=== PATIENT | female | born 1960 | race African-American/Black ===

== ENCOUNTER 2017-07-23 11:17 | Emergency (ER) | payer BC ==
[~2017-07-23 11:17] MED LIST: ASPI325T8 PO; ATOR10TA60 PO; HYDR12.58 PO; HYDR25TA9 PO; INSU100V SQ; INSU100V8 SQ; METO50TA2 PO
[2017-07-23] MEDS ORDERED: DEXTROSE 50% 25 GM / 50ML DISP.SYRIN. IV ONE (11:45)
[2017-07-23 12:01] LABS: BASO # 0.1 x10^3/uL (0.0-0.2); BASO % 1 % (0-3); EOS # 0.1 x10^3/uL (0.0-0.7); EOS % 1 % (0-3); HEMATOCRIT 32.7 % (36.0-47.0); HEMOGLOBIN 10.3 g/dL (12.0-15.5); LYMPH # 3.4 x10^3/uL (1.0-4.8); LYMPH % 18 % (24-48); MEAN CORPUSCULAR HEMOGLOBIN 25 pg (25-35); MEAN CORPUSCULAR HGB CONC 31 g/dL (31-37); MEAN CORPUSCULAR VOLUME 80 fL (79-100); MONO # 1.4 x10^3/uL (0.0-1.1); MONO % 7 % (0-9); NEUT # 14.2 x10^3uL (1.8-7.7); NEUT % 74 % (31-73); PLATELET COUNT 270 x10^3/uL (140-400); RED BLOOD COUNT 4.07 x10^6/uL (3.50-5.40); RED CELL DISTRIBUTION WIDTH 13.5 % (11.5-14.5); WHITE BLOOD COUNT 19.2 x10^3/uL (4.0-11.0)
[2017-07-23 12:17] LABS: ALBUMIN 3.4 g/dL (3.4-5.0); ALBUMIN/GLOBULIN RATIO 0.7 (1.0-1.7); CALCIUM 9.2 mg/dL (8.5-10.1); CREATININE 1.9 mg/dL (0.6-1.0); GFR 33.2; POTASSIUM 3.9 mmol/L (3.5-5.1); TOTAL BILIRUBIN 0.2 mg/dL (0.2-1.0)
--- NOTE | 2017-07-23 12:30 | PHYS DOC ---
Past History Past Medical History: Diabetes, Hypotension Past Surgical History: Hysterectomy Alcohol Use: None Drug Use: None Adult General Chief Complaint Chief Complaint: HYPOGLYCEMIA HPI HPI Patient is a 57-year-old female, diabetic, who presents by EMS from home after an episode of altered level of consciousness and hypoglycemia. History is from primarily EMS and the patient's daughter initially. Patient's daughter states that the patient worked last night, she came home and the daughter believes she probably took her insulin shot but then did not eat and fell asleep. Daughter found her asleep in her chair slumped over and was not able to wake her. EMS reports that her blood sugar was in the 50 range. She was lethargic on their arrival. They were able to give her some oral glucose but not able to get an IV started. They got her to eat some peanut butter and jelly sandwich on the way in. Daughter states this has happened before. The last time was probably a couple months ago she thinks. Patient gets her primary care at the [facility]. Review of Systems Review of Systems Constitutional: Denies fever or chills , she does feel cold at this time HENT: Denies nasal congestion or sore throat [] Respiratory: Denies cough or shortness of breath [] Cardiovascular: Denies chest pain GI: Denies abdominal pain, nausea, vomiting, bloody stools or diarrhea [] : Denies dysuria or hematuria [] Musculoskeletal: Denies back pain or joint pain [] Integument: Denies rash or skin lesions [] Neurologic: Denies headache, focal weakness or sensory changes [] Current Medications Current Medications Current Medications Medications (Trade) Dose Ordered Sig/Magdaleno Start Time Stop Time Status Last Admin Dose Admin Dextrose 25 gm 1X ONCE 07/23/17 11:45 07/23/17 11:46 DC 07/23/17 11:35 25 GM Allergies Allergies Allergies Coded Allergies Type Severity Reaction Last Updated Verified No Known Drug Allergies 11/14/16 No Physical Exam Physical Exam Constitutional: Well developed, well nourished, no acute distress, non-toxic appearance. Slightly lethargic and confused on presentation, however, able to answer questions. Vital signs stable. HENT: Normocephalic, atraumatic, bilateral external ears normal, nose normal. [] Eyes: conjunctiva normal, no discharge. [] Neck: Normal range of motion, no stridor. [] Cardiovascular:Heart rate regular rhythm, no murmur [] Lungs & Thorax: Bilateral breath sounds clear to auscultation [] Abdomen: Bowel sounds normal, soft, no tenderness, no masses, no pulsatile masses. [] Skin: Warm, dry, no erythema, no rash. [] Extremities: No tenderness, no cyanosis, no clubbing, ROM intact, no edema. [] Neurologic: Alert and oriented X 3, normal motor function, no focal deficits noted. No facial asymmetry, speech normal after the patient cleared up, hospitalist nocturnist physician 5 over 5 and equal bilaterally, no pronator drift. Able to elevate each leg independently off the bed. Finger to nose and heel to rehman normal. Current Patient Data Lab Results Laboratory Tests Test 07/23/17 11:42 White Blood Count 19.2 x10^3/uL (4.0-11.0) H Red Blood Count 4.07 x10^6/uL (3.50-5.40) Hemoglobin 10.3 g/dL (12.0-15.5) L Hematocrit 32.7 % (36.0-47.0) L Mean Corpuscular Volume 80 fL (79-100) Mean Corpuscular Hemoglobin 25 pg (25-35) Mean Corpuscular Hemoglobin Concent 31 g/dL (31-37) Red Cell Distribution Width 13.5 % (11.5-14.5) Platelet Count 270 x10^3/uL (140-400) Neutrophils (%) (Auto) 74 % (31-73) H Lymphocytes (%) (Auto) 18 % (24-48) L Monocytes (%) (Auto) 7 % (0-9) Eosinophils (%) (Auto) 1 % (0-3) Basophils (%) (Auto) 1 % (0-3) Neutrophils # (Auto) 14.2 x10^3uL (1.8-7.7) H Lymphocytes # (Auto) 3.4 x10^3/uL (1.0-4.8) Monocytes # (Auto) 1.4 x10^3/uL (0.0-1.1) H Eosinophils # (Auto) 0.1 x10^3/uL (0.0-0.7) Basophils # (Auto) 0.1 x10^3/uL (0.0-0.2) Platelet Estimate Pending Sodium Level 142 mmol/L (136-145) Potassium Level 3.9 mmol/L (3.5-5.1) Chloride Level 107 mmol/L (98-107) Carbon Dioxide Level 26 mmol/L (21-32) Anion Gap 9 (6-14) Blood Urea Nitrogen 44 mg/dL (7-20) H Creatinine 1.9 mg/dL (0.6-1.0) H Estimated GFR (Cockcroft-Gault) 33.2 BUN/Creatinine Ratio 23 (6-20) H Glucose Level 185 mg/dL (70-99) H Calcium Level 9.2 mg/dL (8.5-10.1) Total Bilirubin 0.2 mg/dL (0.2-1.0) Aspartate Amino Transferase (AST) 18 U/L (15-37) Alanine Aminotransferase (ALT) 24 U/L (14-59) Alkaline Phosphatase 130 U/L (46-116) H Total Protein 8.0 g/dL (6.4-8.2) Albumin 3.4 g/dL (3.4-5.0) Albumin/Globulin Ratio 0.7 (1.0-1.7) L EKG EKG [] Radiology/Procedures Radiology/Procedures [] Course & Med Decision Making Course & Med Decision Making Pertinent Labs and Imaging studies reviewed. (See chart for details) 57-year-old female presents by EMS after an episode of hypoglycemia. EMS was not able to get IV access but they gave her oral glucose and a peanut butter and jelly sandwich. Patient is alert, seems hypoglycemic but is certainly awake and cooperative on arrival. The patient worked nights last night. The patient has no specific complaints. It appears that she administered her insulin and did not eat. She has done this before. The patient was given IV dextrose in the ED. She continued to improve. She ate some food off of a meal tray. She drank some juice. We observed her for quite a while. Labs remarkable only for leukocytosis which I attribute to stress, since her review of systems is negative and also urinalysis is negative. Patient's daughter is going to take her home. The patient is alert and appropriate and aware of what happened and we discussed prevention by ensuring that she eats possibly before taking her insulin in the future. See instructions for plan. [] Dragon Disclaimer Dragon Disclaimer This chart was dictated in whole or in part using Voice Recognition software in a busy, high-work load, and often noisy Emergency Department environment. It may contain unintended and wholly unrecognized errors or omissions. Departure Departure: Impression: Primary Impression: Hypoglycemia associated with type 2 diabetes mellitus Disposition: HOME, SELF-CARE Condition: IMPROVED Referrals: PCP,ROCCO (PCP) Patient Instructions: Hypoglycemia, [id number] Additional Instructions: Be sure to eat regular meals today. Have someone stay with you and check on you to make sure that you are remembering to eat. For today, decrease your insulin dose by about one half. In the future, make sure that you eat when you take insulin. It might be best to eat first and then take your insulin immediately after eating. BHARGAV MCRAE MD Jul 23, 2017 12:30
[2017-07-23 13:31] LABS: % BANDS 2 % (0-9); % BASOS 0 % (0-3); % EOS 4 % (0-5); % LYMPHS 21 % (24-48); % MONOS 5 % (0-10); % SEGS 68 % (35-66); PLT ESTIMATE ADEQUATE (ADEQUATE)
[2017-07-23 13:34] LABS: BACTERIA,URINE 0 /HPF (0-FEW); BILIRUBIN,URINE NEG (NEG); CLARITY,URINE CLEAR; COLOR,URINE YELLOW; GLUCOSE,URINE 100 mg/dL (NEG); NITRITE,URINE NEG (NEG); RBC,URINE 0 /HPF (0-2); SQUAMOUS EPITHELIAL CELL,UR OCC /LPF; UROBILINOGEN,URINE 0.2 mg/dL (0.2 mg/dL); WBC,URINE 0 /HPF (0-4)
[2017-07-23 13:50] VITALS: BP 154/93
== END 2017-07-23 14:00 | disposition home or self-care (01) ==
LOC: ER 11:17
DX: E11.649 Type 2 diabetes mellitus with hypoglycemia without coma (principal); I10 Essential (primary) hypertension
CPT/HCPCS: 36415; 80053; 81001; 82947; 85007; 85025; 96374; 99284-25

== ENCOUNTER → 2018-04-13 | Outpatient (CLI) | payer OTHER ==
[~2018-04-13] MED LIST changes: -METO50TA2 PO; +METO50TA6 PO
[2018-04-13 13:57] LABS: BASO # 0.1 x10^3/uL (0.0-0.2); BASO % 1 % (0-3); EOS # 0.1 x10^3/uL (0.0-0.7); EOS % 1 % (0-3); HEMATOCRIT 35.1 % (36.0-47.0); HEMOGLOBIN 11.2 g/dL (12.0-15.5); LYMPH # 3.1 x10^3/uL (1.0-4.8); LYMPH % 29 % (24-48); MEAN CORPUSCULAR HEMOGLOBIN 26 pg (25-35); MEAN CORPUSCULAR HGB CONC 32 g/dL (31-37); MEAN CORPUSCULAR VOLUME 81 fL (79-100); MONO # 0.9 x10^3/uL (0.0-1.1); MONO % 9 % (0-9); NEUT # 6.4 x10^3uL (1.8-7.7); NEUT % 61 % (31-73); PLATELET COUNT 296 x10^3/uL (140-400); RED BLOOD COUNT 4.36 x10^6/uL (3.50-5.40); RED CELL DISTRIBUTION WIDTH 14.1 % (11.5-14.5); WHITE BLOOD COUNT 10.6 x10^3/uL (4.0-11.0)
[2018-04-13 14:11] LABS: ALBUMIN 3.7 g/dL (3.4-5.0); ALBUMIN/GLOBULIN RATIO 0.7 (1.0-1.7); CALCIUM 9.7 mg/dL (8.5-10.1); CREATININE 2.2 mg/dL (0.6-1.0); GFR 27.9; POTASSIUM 4.4 mmol/L (3.5-5.1); TOTAL BILIRUBIN 0.3 mg/dL (0.2-1.0); TOTAL PROTEIN 9.1 g/dL (6.4-8.2)
== END | disposition home or self-care (01) ==
LOC: PMG 12:53
PROVIDERS: ATTEND Family Medicine
DX: R11.0 Nausea (principal); R53.83 Other fatigue; I12.9 Hypertensive chronic kidney disease with stage 1 through stage 4 chronic kidney disease, or unspecified chronic kidney disease; E11.22 Type 2 diabetes mellitus with diabetic chronic kidney disease; N18.3 Chronic kidney disease, stage 3 (moderate); E78.5 Hyperlipidemia, unspecified
CPT/HCPCS: 36415; 80053; 84443; 85025

== ENCOUNTER 2018-06-08 08:35 | Emergency (ER) | payer OTHER ==
[~2018-06-08] VITALS: Ht 167.6 cm; Wt 79.4 kg
[2018-06-08] MEDS ORDERED: IV NORMAL SALINE 1,000ML 1,000 ML IV SCH (08:51)
[2018-06-08 09:27] LABS: BASO # 0.1 x10^3/uL (0.0-0.2); BASO % 1 % (0-3); EOS # 0.1 x10^3/uL (0.0-0.7); EOS % 1 % (0-3); HEMATOCRIT 36.9 % (36.0-47.0); HEMOGLOBIN 11.8 g/dL (12.0-15.5); LYMPH # 2.6 x10^3/uL (1.0-4.8); LYMPH % 27 % (24-48); MEAN CORPUSCULAR HEMOGLOBIN 26 pg (25-35); MEAN CORPUSCULAR HGB CONC 32 g/dL (31-37); MEAN CORPUSCULAR VOLUME 80 fL (79-100); MONO # 0.9 x10^3/uL (0.0-1.1); MONO % 9 % (0-9); NEUT % 62 % (31-73); PLATELET COUNT 267 x10^3/uL (140-400); RED BLOOD COUNT 4.61 x10^6/uL (3.50-5.40); RED CELL DISTRIBUTION WIDTH 14.8 % (11.5-14.5); WHITE BLOOD COUNT 9.7 x10^3/uL (4.0-11.0)
[2018-06-08] MEDS ORDERED: ONDANSETRON PF 4 MG/2 ML VIAL. IV ONE (09:30)
--- NOTE | 2018-06-08 09:41 | EKG ---
[address] [address] Test Date: 2018-06-08 Test Time: 08:56:27 Pat Name: ABIMAEL WARD Department: Room: Gender: F Post Splitter: : 1960 Requested By: ALIREZA NOLASCO Order Number: [id number] Reading MD: Darryl Ya MD Measurements Intervals [place] Rate: 104 P: 35 RI: 146 QRS: -23 QRSD: 76 T: 38 QT: 324 QTc: 432 Interpretive Statements SINUS TACHYCARDIA Electronically Signed On 06-13-2018 11:43:06 CDT by Darryl Ya MD
--- NOTE | 2018-06-08 09:42 | RAD ---
CHEST AP ONLY History: COUGH Comparison: None. Findings: Single view of the chest is submitted. There is no infiltrate, pneumothorax, or effusion. The pericardial cardiac silhouette is within normal limits in size. Impression: 1. There is no evidence of acute cardiopulmonary disease. Electronically signed by: Nickolas Townsend MD (06/08/2018 9:39 AM) [facility]
[2018-06-08 09:44] VITALS: BP 121/79
[2018-06-08 10:04] LABS: ALBUMIN 3.6 g/dL (3.4-5.0); ALBUMIN/GLOBULIN RATIO 0.7 (1.0-1.7); ALK PHOS 135 U/L (46-116); ALT (SGPT) 17 U/L (14-59); ANION GAP 8 (6-14); AST (SGOT) 14 U/L (15-37); BLOOD UREA NITROGEN 41 mg/dL (7-20); BUN/CREATININE RATIO 18 (6-20); CALCIUM 9.7 mg/dL (8.5-10.1); CARBON DIOXIDE 31 mmol/L (21-32); CHLORIDE 106 mmol/L (98-107); CREATININE 2.3 mg/dL (0.6-1.0); GFR 26.5; GLUCOSE 114 mg/dL (70-99); LIPASE 158 U/L (73-393); POTASSIUM 4.4 mmol/L (3.5-5.1); SODIUM 145 mmol/L (136-145); TOTAL BILIRUBIN 0.4 mg/dL (0.2-1.0); TOTAL PROTEIN 8.6 g/dL (6.4-8.2)
[2018-06-08] MEDS ORDERED: METOCLOPRAMIDE HCL 10 MG/2 ML VIAL. IV ONE (10:15)
--- NOTE | 2018-06-08 10:46 | RAD ---
EXAM: Abdomen sonogram. HISTORY: Nausea and vomiting. TECHNIQUE: Sonographic imaging of the abdomen was performed. COMPARISON: None. FINDINGS: The liver is normal in size. No focal hepatic lesion is seen. The common bile duct is normal in caliber. There is a 3 mm nonmobile echogenic focus along the gallbladder wall due to a polyp. There is no gallbladder wall thickening. The right kidney measures 10.6 cm [id number] and contains a 4.3 cm cyst within the upper mid zone. There is no hydronephrosis. The inferior cava is patent. The aorta is not assessed. The pancreas is unremarkable. IMPRESSION: 1. 4.3 cm right renal cyst. 2. 3 mm gallbladder polyp. Electronically signed by: Katiuska Patel MD (06/08/2018 10:42 AM) [id number]
[2018-06-08 10:56] LABS: BACTERIA,URINE MANY /HPF (0-FEW); BILIRUBIN,URINE NEG (NEG); CLARITY,URINE CLOUDY; COLOR,URINE YELLOW; GLUCOSE,URINE NEG (NEG); NITRITE,URINE NEG (NEG); SQUAMOUS EPITHELIAL CELL,UR MOD /LPF; UROBILINOGEN,URINE 0.2 mg/dL (0.2 mg/dL); WBC,URINE >40 /HPF (0-4)
[2018-06-08] MEDS ORDERED: cefTRIAXone SODIUM 1 GM VIAL IV ONE (11:12)
[2018-06-08] MEDS ORDERED: IV NORMAL SALINE 50ML 50 ML ONE (11:12)
[2018-06-08] MEDS ORDERED: METO10TA81 PO (11:29)
[2018-06-08] MEDS ORDERED: CIPR250T30 PO (11:29)
--- NOTE | 2018-06-08 11:30 | PHYS DOC ---
Past History Past Medical History: Diabetes, GERD, High Cholesterol, Hypertension, Hypothyroid, Renal Failure Past Surgical History: Other Alcohol Use: None Drug Use: None Adult General Chief Complaint Chief Complaint: NAUSEA/VOMITING/DIARRHEA HPI HPI Patient is a 58 year old female who presents with complaining of nausea and vomiting. Patient complaining of frequent episodes of nonbloody vomiting for the last 3 days and states she had 8 episodes of vomiting every day without abdominal pain, chest pain, urinary symptoms, diarrhea, fever and chills. Complaining of increasing of nausea and vomiting after her chronic cough related to lisinopril. Patient states she has had episodes of nausea and vomiting intermittently for 2 years that usually happen once a month or once every several months. Abnormal finding during her evaluation by her primary care physician. Review of Systems Review of Systems Constitutional: Denies fever or chills [] Eyes: Denies change in visual acuity, redness, or eye pain [] HENT: Denies nasal congestion or sore throat [] Respiratory: Denies cough or shortness of breath [] Cardiovascular: No additional information not addressed in HPI [] GI: Denies abdominal pain, bloody stools or diarrhea, reports nausea and vomiting [] : Denies dysuria or hematuria [] Musculoskeletal: Denies back pain or joint pain [] Integument: Denies rash or skin lesions [] Neurologic: Denies headache, focal weakness or sensory changes [] Endocrine: Denies polyuria or polydipsia [] All other systems were reviewed and found to be within normal limits, except as documented in this note. Current Medications Current Medications Current Medications Medications (Trade) Dose Ordered Sig/Magdaleno Start Time Stop Time Status Last Admin Dose Admin Ceftriaxone Sodium 1 gm/ Sodium Chloride 50 ml @ 100 mls/hr 1X ONCE 06/08/18 11:45 06/08/18 12:14 06/08/18 11:17 100 MLS/HR Ceftriaxone Sodium (Rocephin) 1 gm STK-MED ONCE 06/08/18 11:12 06/08/18 11:13 DC Metoclopramide HCl (Reglan Vial) 10 mg 1X ONCE 06/08/18 10:15 06/08/18 10:16 DC 06/08/18 10:05 10 MG Ondansetron HCl (Zofran) 4 mg 1X ONCE 06/08/18 09:30 06/08/18 09:31 DC 06/08/18 09:11 4 MG Sodium Chloride 50 ml @ As Directed STK-MED ONCE 06/08/18 11:12 06/08/18 11:13 DC Allergies Allergies Allergies Coded Allergies Type Severity Reaction Last Updated Verified No Known Drug Allergies 11/14/16 No Physical Exam Physical Exam Constitutional: Well developed, well nourished, mild distress, non-toxic appearance. [] HENT: Normocephalic, atraumatic, oropharynx moist, no oral exudates, nose normal. [] Eyes: PERRLA, EOMI, conjunctiva normal, no discharge. [] Neck: Normal range of motion, no tenderness, supple, no stridor. [] Cardiovascular:Heart rate regular rhythm, no murmur [] Lungs & Thorax: Bilateral breath sounds clear to auscultation [] Abdomen: Bowel sounds normal, soft, no tenderness, no masses, no pulsatile masses. [] Skin: Warm, dry, no erythema, no rash. [] Back: No tenderness, no CVA tenderness. [] Extremities: No tenderness, no cyanosis, no clubbing, ROM intact, no edema. [] Neurologic: Alert and oriented X 3, normal motor function, normal sensory function, no focal deficits noted. [] Psychologic: Affect anxious, judgement normal, mood normal. [] Current Patient Data Vital Signs Vital Signs Date Time Temp Pulse Resp B/P (MAP) Pulse Ox O2 Delivery O2 Flow Rate FiO2 06/08/18 09:44 106 14 121/79 (93) 98 Room Air 06/08/18 08:48 98.2 Lab Results Laboratory Tests Test 06/08/18 09:05 06/08/18 09:20 06/08/18 10:35 White Blood Count 9.7 x10^3/uL (4.0-11.0) Red Blood Count 4.61 x10^6/uL (3.50-5.40) Hemoglobin 11.8 g/dL (12.0-15.5) L Hematocrit 36.9 % (36.0-47.0) Mean Corpuscular Volume 80 fL (79-100) Mean Corpuscular Hemoglobin 26 pg (25-35) Mean Corpuscular Hemoglobin Concent 32 g/dL (31-37) Red Cell Distribution Width 14.8 % (11.5-14.5) H Platelet Count 267 x10^3/uL (140-400) Neutrophils (%) (Auto) 62 % (31-73) Lymphocytes (%) (Auto) 27 % (24-48) Monocytes (%) (Auto) 9 % (0-9) Eosinophils (%) (Auto) 1 % (0-3) Basophils (%) (Auto) 1 % (0-3) Neutrophils # (Auto) 6.0 x10^3uL (1.8-7.7) Lymphocytes # (Auto) 2.6 x10^3/uL (1.0-4.8) Monocytes # (Auto) 0.9 x10^3/uL (0.0-1.1) Eosinophils # (Auto) 0.1 x10^3/uL (0.0-0.7) Basophils # (Auto) 0.1 x10^3/uL (0.0-0.2) Sodium Level 145 mmol/L (136-145) Potassium Level 4.4 mmol/L (3.5-5.1) Chloride Level 106 mmol/L (98-107) Carbon Dioxide Level 31 mmol/L (21-32) Anion Gap 8 (6-14) Blood Urea Nitrogen 41 mg/dL (7-20) H Creatinine 2.3 mg/dL (0.6-1.0) H Estimated GFR (Cockcroft-Gault) 26.5 BUN/Creatinine Ratio 18 (6-20) Glucose Level 114 mg/dL (70-99) H Calcium Level 9.7 mg/dL (8.5-10.1) Total Bilirubin 0.4 mg/dL (0.2-1.0) Aspartate Amino Transferase (AST) 14 U/L (15-37) L Alanine Aminotransferase (ALT) 17 U/L (14-59) Alkaline Phosphatase 135 U/L (46-116) H Creatine Kinase 97 U/L (26-192) Creatine Kinase MB (Mass) < 0.5 ng/mL (0.0-3.6) Creatine Kinase MB Relative Index 0.5 % (0-4) Troponin I Quantitative < 0.017 ng/mL (0-0.055) Total Protein 8.6 g/dL (6.4-8.2) H Albumin 3.6 g/dL (3.4-5.0) Albumin/Globulin Ratio 0.7 (1.0-1.7) L Lipase 158 U/L (73-393) Prothrombin Time 9.7 SEC (9.4-11.4) Prothrombin Time INR 1.0 (0.9-1.1) Lactic Acid Level 0.8 mmol/L (0.4-2.0) Urine Collection Type Unknown Urine Color Yellow Urine Clarity Cloudy Urine pH 6.5 Urine Specific [place] 1.015 Urine Protein 100 mg/dl (NEG-TRACE) Urine Glucose (UA) Neg mg/dL (NEG) Urine Ketones (Stick) Neg mg/dL (NEG) Urine Blood Trace (NEG) Urine Nitrite Neg (NEG) Urine Bilirubin Neg (NEG) Urine Urobilinogen Dipstick 0.2 mg/dL (0.2 mg/dL) Urine Leukocyte Esterase Mod (NEG) Urine RBC 1-2 /HPF (0-2) Urine WBC >40 /HPF (0-4) Urine Squamous Epithelial Cells Mod /LPF Urine Bacteria Many /HPF (0-FEW) EKG EKG EKG interpreted by me. EKG at 0 856 showed sinus tachycardia at rate of 104, leftward axis, poor R-wave progress in anteroseptal leads, no acute ST and T wave abnormality[] Radiology/Procedures Radiology/Procedures [][place] [address] IMAGING REPORT Signed PATIENT: ABIMAEL WARD ACCOUNT: [id number] : 1960 LOCATION: ER AGE: 58 SEX: F EXAM STATUS: REG ER ORD. PHYSICIAN: ALIREZA NOLASCO MD REASON: episode of nausea and vomiting PROCEDURE: ABDOMEN LTD EXAM: Abdomen sonogram. HISTORY: Nausea and vomiting. TECHNIQUE: Sonographic imaging of the abdomen was performed. COMPARISON: None. FINDINGS: The liver is normal in size. No focal hepatic lesion is seen. The common bile duct is normal in caliber. There is a 3 mm nonmobile echogenic focus along the gallbladder wall due to a polyp. There is no gallbladder wall thickening. The right kidney measures 10.6 cm [id number] and contains a 4.3 cm cyst within the upper mid zone. There is no hydronephrosis. The inferior cava is patent. The aorta is not assessed. The pancreas is unremarkable. IMPRESSION: 1. 4.3 cm right renal cyst. 2. 3 mm gallbladder polyp. Electronically signed by: Katiuska Mancera MD (06/08/2018 10:42 AM) [facility] DICTATED AND SIGNED BY: KATIUSKA MANCERA MD DATE: 06/08/18 1041 CC: ALIREZA NOLASCO MD; ODALYS WILLIAMSON MD ~ [place] [address] IMAGING REPORT Signed PATIENT: ABIMAEL WARD ACCOUNT: [id number] : 1960 LOCATION: ER AGE: 58 SEX: F EXAM STATUS: REG ER ORD. PHYSICIAN: ALIREZA NOLASCO MD REASON: cough PROCEDURE: CHEST AP ONLY CHEST AP ONLY History: COUGH Comparison: None. Findings: Single view of the chest is submitted. There is no infiltrate, pneumothorax, or effusion. The pericardial cardiac silhouette is within normal limits in size. Impression: 1. There is no evidence of acute cardiopulmonary disease. Electronically signed by: Eagle Townsend MD (06/08/2018 9:39 AM) [facility] DICTATED AND SIGNED BY: EAGLE TOWNSEND MD DATE: 06/08/18 0938 CC: ALIREZA NOLASCO MD; ODALYS WILLIAMSON MD ~ Course & Med Decision Making Course & Med Decision Making Pertinent Labs and Imaging studies reviewed. (See chart for details) Evaluation of patient in ER showed 58-year-old male patient with complaining of episodes of nausea and vomiting. The last 2 days and history of the same episode ASHISH-3 for the last 2 years. Patient had unremarkable physical exam and labs except for UTI. Patient treated with IV fluid, Zofran, Reglan and Rocephin ER and felt better and tolerated oral intake. Gallbladder ultrasound showed gallbladder polyp. Patient instructed to avoid of taking fatty foods and follow with her primary care physician for more gallbladder evaluation. [] Dragon Disclaimer Dragon Disclaimer This electronic medical record was generated, in whole or in part, using a voice recognition dictation system. Departure Departure: Impression: Primary Impression: Nausea and vomiting Additional Impressions: Urinary tract infection Renal insufficiency Diabetes mellitus Polyp of gallbladder Disposition: HOME, SELF-CARE (@1125) Condition: IMPROVED Referrals: ODALYS WILLIAMSON MD (PCP) Patient Instructions: Nausea and Vomiting, Urinary Tract Infection Additional Instructions: Drink plenty of liquids Follow-up with your primary care physician in 3-5 days Return to ER if not getting better Scripts Ciprofloxacin Hcl (CIPRO) 250 Mg Tablet 1 TAB PO BID, #14 TAB Prov: ALIREZA NOLASCO MD 06/08/18 Metoclopramide Hcl (REGLAN) 10 Mg Tablet 10 MG PO TID, #14 TAB Prov: ALIREZA NOLASCO MD 06/08/18 Problem Qualifiers ALIREZA NOLASCO MD Jun 08, 2018 11:30
== END 2018-06-08 11:50 | disposition home or self-care (01) ==
LOC: ER 08:35
DX: N39.0 Urinary tract infection, site not specified (principal); K82.4 Cholesterolosis of gallbladder; N28.1 Cyst of kidney, acquired; N28.9 Disorder of kidney and ureter, unspecified; E11.9 Type 2 diabetes mellitus without complications; K21.9 Gastro-esophageal reflux disease without esophagitis; E78.00 Pure hypercholesterolemia, unspecified; I10 Essential (primary) hypertension; E03.9 Hypothyroidism, unspecified
CPT/HCPCS: 36415; 71045; 76705; 80053; 81001; 82553; 83605; 83690; 84484; 85025; 85610; 87086; 87186; 93005; 96361; 96365; 96375; 99285; J0696; J2405; J2765; J7030

== ENCOUNTER → 2018-06-20 | Outpatient (CLI) | payer OTHER ==
[2018-06-08 09:44] VITALS: BP 121/79
[~2018-06-20] MED LIST changes: +CIPR250T30 PO; +METO10TA81 PO
[2018-06-21 03:08] LABS: HEMOGLOBIN A1C 7.4 % (4.8-5.6)
== END | disposition home or self-care (01) ==
LOC: LAB 09:52
PROVIDERS: ATTEND Family Medicine
DX: I12.9 Hypertensive chronic kidney disease with stage 1 through stage 4 chronic kidney disease, or unspecified chronic kidney disease (principal); E11.22 Type 2 diabetes mellitus with diabetic chronic kidney disease; N18.3 Chronic kidney disease, stage 3 (moderate); E78.00 Pure hypercholesterolemia, unspecified; K21.9 Gastro-esophageal reflux disease without esophagitis; E78.5 Hyperlipidemia, unspecified; Z90.722 Acquired absence of ovaries, bilateral; Z90.710 Acquired absence of both cervix and uterus; Z82.49 Family history of ischemic heart disease and other diseases of the circulatory system; Z83.3 Family history of diabetes mellitus
CPT/HCPCS: 36415; 83036